=== PATIENT | male | born 1945 | race Caucasian/White ===

== ENCOUNTER 2021-08-30 14:38 | Outpatient (CLI) | payer MEDICARE | END 2021-08-30 14:39 | disposition home or self-care (01) | LOC: CSHMRI 14:38 | PROVIDERS: ATTEND Surgery | DX: S12.9XXA Fracture of neck, unspecified, initial encounter (principal); M48.02 Spinal stenosis, cervical region; Z98.1 Arthrodesis status; M47.812 Spondylosis without myelopathy or radiculopathy, cervical region; S12.000A Unspecified displaced fracture of first cervical vertebra, initial encounter for closed fracture; Z98.890 Other specified postprocedural states; T84.038A Mechanical loosening of other internal prosthetic joint, initial encounter; R91.8 Other nonspecific abnormal finding of lung field; J18.9 Pneumonia, unspecified organism; M43.13 Spondylolisthesis, cervicothoracic region; L76.82 Other postprocedural complications of skin and subcutaneous tissue | CPT/HCPCS: 72125; 72141 ==